=== PATIENT | female | born 1980 | race Caucasian/White ===

== ENCOUNTER 2020-08-03 10:24 | Emergency (ER) | payer SELFPAY | END 2020-08-03 11:47 | disposition home or self-care (01) | LOC: ERS 10:24 | DX: S31.502A Unspecified open wound of unspecified external genital organs, female, initial encounter (principal); L72.0 Epidermal cyst; F17.290 Nicotine dependence, other tobacco product, uncomplicated | CPT/HCPCS: 93005; 99282 ==